=== PATIENT | male | born 1950 | race African-American/Black ===

== ENCOUNTER 2019-05-07 10:15 | Emergency (ER) | payer MEDICARE, OTHER ==
[~2019-05-07] VITALS: Ht 170.2 cm; Wt 74.8 kg
[2019-05-07] MEDS ORDERED: KETOROLAC TROMETHAMINE 30 MG INJ ONE (10:42)
[2019-05-07] MEDS ORDERED: HYDROCODONE/APAP 5-325MG TABLET ONE (10:42)
[2019-05-07] MEDS: HYDROCODONE/APAP 5-325MG TABLET PO ONE (10:47)
[2019-05-07] MEDS: KETOROLAC TROMETHAMINE 30 MG INJ IM ONE (10:47)
--- NOTE | 2019-05-07 10:47 | NUR ---
Patient discharged to home in stable conditon. Written and verbal after care instructions given. Patient verbalizes understanding of instructions.PT WALKS I NSTEADY GAIT. PT NOT DRIVING.
== END 2019-05-07 10:51 | disposition home or self-care (01) ==
LOC: ER 10:15
DX: M54.5 Low back pain (principal)
CPT/HCPCS: 96372; 99283; J1885; A4663